=== PATIENT | male | born 1955 | race Caucasian/White ===

== ENCOUNTER 2016-04-19 06:52 | Inpatient (IN) | payer OTHER ==
--- NOTE | 2016-04-18 22:01 | GHP ---
[f rep st] PREOP HISTORY AND PHYSICAL Amended report DATE OF SURGERY: He will have surgery at [facility] on Tuesday April 19, 2016. PROBLEM: Right hip arthritis. HISTORY OF PRESENT ILLNESS: The patient is a 61-year-old man admitted for a right hip Peggy hip resurfacing arthroplasty. He lives in [place]. I did his left BHR in January of 2012. He has had an excellent result. In the last year or so he has had progressive pain in his right hip. He is now having daily pain and night pain. He has trouble putting on his shoes and socks on the right foot. PAST MEDICAL HISTORY: He is treated for hypothyroidism and elevated cholesterol. No history of heart disease, stents, DVT, hepatitis, or sleep apnea. He had a right knee medial compartment Antonino arthroplasty in 2012 with a good result. CURRENT MEDICATIONS: Thyroid replacement 150 mcg per day and Crestor. ALLERGIES: He probably had some type of reaction to oxycodone with his first BHR. He also believes he has a latex allergy. SOCIAL HISTORY: The patient is . He lives in [place]. He does not smoke cigarettes and occasionally drinks alcohol. He works as a assistant real estate manager. FAMILY HISTORY: Negative. PHYSICAL EXAMINATION: GENERAL: He is a healthy, fit appearing man. Height 5 feet 8 inches, weight 180 pounds. BMI 27.4. EYES: Conjunctivae and sclerae are clear. Pupils are round and reactive. MOUTH: Good oral hygiene. No loose teeth. CHEST: Clear. HEART: Regular rhythm. No murmurs. EXTREMITIES : Pertinent findings limited to his right hip. He has full hip extension and 90 degrees of flexion. As he flexes the hip, he develops a 10-degree external rotation contracture and has only about 10 additional degrees of external rotation. Abduction 20-30 degrees. His films show advanced degenerative arthritis of the right hip. He is bone on bone. Peripheral osteophytes are present. His left BHR looks excellent. IMPRESSION ON ADMISSION: 1. Right hip degenerative arthritis. He is prepared for right hip [place] hip resurfacing arthroplasty. 2. Five years status post successful left [place] hip resurfacing. 3. Status post right knee medial compartment Antonino uni arthroplasty. 4. Treatment for hypothyroidism and elevated cholesterol. PLAN: He will undergo a right hip [place] hip resurfacing arthrplasty. The surgery has been described to him including the risks, complications, expectations, and recovery time. I have discussed with him the risks of dislocation, femoral neck fracture, infection, and sciatic nerve injury. We have also discussed the risks of elevated metal ions in the blood and in the soft tissues around the hip joint. He understands that there is a risk of future revision surgery. I have also advised him that with bilateral procedures there can be mild [id number] differences in the recovery and even in the final result. I have also advised him that he is at the upper age limit of suitability for hip resurfacing. He feels like since he has had such a good result on the left side that he wants resurfacing on the right. All his questions have been answered, and he consents to surgery. /[id number]/MODL MTDD
[~2016-04-19 06:52] MED LIST: ACETAMINOPHEN 325 MG TAB ONE; ACETAMINOPHEN 325 MG TAB PO ONE; CEFAZOLIN 2 GM/DEXTR 100 ML IV ONE; CEFAZOLIN 2 GM/DEXTROSE/100 ML BAG IV ONE; DEXAMETHASONE 4 MG/ML VIAL IVP ONE; DEXAMETHASONE 4 MG/ML VIAL ONE; FAMOTIDINE 20 MG TAB ONE; FAMOTIDINE 20 MG TAB PO ONE; HYDROCODONE/APAP 5/325 TAB PO ONE; LIDOCAINE 1% 5 ML SDV ONE; POVIDONE-IODINE 20 ML in SODIUM CL IRRIG SOLUTION 500 ML IRR ONE; ROPI/epiNEPH/KETOROLAC JOINT COCKTAIL IU ONE; TRANEXAMIC ACID 800 MG in NS 100 ML IV ONE
[2016-04-19] MEDS ORDERED: LR 1,000 ML IV ONE (07:16)
[2016-04-19] MEDS ORDERED: LIDOCAINE 1% 5 ML SDV ID PRN (07:16)
[2016-04-19] MEDS ORDERED: SKIN ADHESIVE (DERMABOND) 1 EACH TP ONE (07:46)
[2016-04-19] MEDS ORDERED: ceFAZolin 1 GM/5 ML SYR ONE (07:47)
[2016-04-19] MEDS ORDERED: PROPOFOL/EMULSION 500 MG/50 ML BOTTLE IV ONE (08:04)
[2016-04-19] MEDS ORDERED: MIDAZOLAM 2 MG/2 ML VIAL ONE (08:16)
[2016-04-19] MEDS ORDERED: LIDOCAINE 2% 100 MG/5 ML SYR IVP ONE (08:26)
--- NOTE | 2016-04-19 10:05 | POSTOPPROG ---
Post Op Note Date of Operation: 04/19/16 Surgeon: Davide Schrader Legal Activity Adjudicator: Shira Anesthesiologist: Rob Anesthesia: IV Sedation, Spinal Post-op Diagnosis: R hip arthritis Procedure: R BHR Inf/Abcess present in the surg proc area at time of surgery?: No EBL: 100-500
[2016-04-19] MEDS ORDERED: diphenhydrAMINE 25 MG CAP PO PRN (10:14)
[2016-04-19] MEDS ORDERED: MAGNESIUM HYDROXIDE 30 ML UDCUP PO PRN (10:14)
[2016-04-19] MEDS ORDERED: PROMETHAZINE HCL 25 MG/ML INJ IVP PRN (10:14)
[2016-04-19] MEDS ORDERED: ONDANSETRON DISINTEGRATING 4 MG TAB PO PRN (10:14)
[2016-04-19] MEDS ORDERED: PHARMACY PAIN CONSULT 1 EA MISC PRN (10:14)
[2016-04-19] MEDS ORDERED: POLYETHYLENE GLYCOL 3350 17 GM PKT PO PRN (10:14)
[2016-04-19] MEDS ORDERED: TEMAZEPAM 15 MG CAP PO PRN (10:14)
[2016-04-19] MEDS ORDERED: CYCLOBENZAPRINE 10 MG TAB PO PRN (10:14)
[2016-04-19] MEDS ORDERED: KETOROLAC 30 MG/1 ML SDV IVP PRN (10:14)
[2016-04-19] MEDS ORDERED: traMADol 50 MG TAB PO PRN (10:14)
[2016-04-19] MEDS ORDERED: DIPHENOXYLATE/ATROPINE LOMOTIL 1 TAB PO PRN (10:14)
[2016-04-19] MEDS ORDERED: METOCLOPRAMIDE 10 MG/2 ML VIAL IVP PRN (10:14)
[2016-04-19] MEDS ORDERED: NS 500 ML IV PRN (10:14)
[2016-04-19] MEDS ORDERED: PROMETHAZINE HCL 25 MG SUPPR PR PRN (10:14)
[2016-04-19] MEDS ORDERED: LACTULOSE 20 GM/30 ML UDCUP PO PRN (10:14)
[2016-04-19] MEDS ORDERED: ONDANSETRON 4 MG/2 ML VIAL IVP PRN (10:14)
[2016-04-19] MEDS ORDERED: BISACODYL 10 MG SUPP PR PRN (10:14)
--- NOTE | 2016-04-19 10:53 | GOP ---
[f rep st] OPERATIVE REPORT DATE OF OPERATION: 04/19/2016 SURGEON: Davide Schrader MD ARTIST MODEL: Nils Velarde, STAVE BLOCK ROLLER and Yunier Aguilar, PAC. ANESTHESIA: A combination of Marcaine spinal and IV sedation. ANESTHESIOLOGIST: Suman Lezama MD PREOPERATIVE DIAGNOSIS: Right hip severe degenerative arthritis. POSTOPERATIVE DIAGNOSIS: Right hip severe degenerative arthritis. PROCEDURE PERFORMED: 04/19/2016, a right hip Peggy hip resurfacing arthroplasty. FINDINGS: DESCRIPTION OF PROCEDURE: The patient was given 2 g of IV Ancef preoperatively within 60 minutes of surgery. He also received IV tranexamic acid at a dose of 20 mg/kg. He was placed on the operatin g room table and given spinal anesthesia with Marcaine by Dr. Rivas. He was then placed supine a nd given IV sedation. A [place] catheter was not used. He wore a compressive stocking and SCD on the nonoperative leg. He was rolled to the left lateral decubitus position. An axillary roll was used , and all pressure points were carefully padded. The position was secured with the pegboard table a ttachment. I was careful to lock his pelvis in a vertical position. His perineum was isolated with plastic adhesive drapes. His right hip and right lower extremity were prepped with Betadine soap a nd painted with Betadine solution. He was allergic to ChloraPrep. They were draped free using ster ile sheets, stockinette, and Ioban plastic drape A [facility] time-out was performed to verify the correct patient identity and the co rrect surgical side. The [place] time-out was also performed. I made a 6-7 inch straight oblique posterolateral hip skin incision. Subcutaneous tissues were alphonso ply divided and hemostasis was obtained using electrocautery. The fascia ani was identified and sp lit along the axis of its fibers. I curved posteriorly and proximally and split the fascia of glute us tyrel and bluntly split the muscle fibers in line with their orientation. His sciatic nerve wa s identified and protected throughout the procedure. The [place] self-retaining retractor was inse rted. The external rotators and the posterior hip capsule were divided as separate layers at the ba se of the femoral neck, tagged, and reflected posteriorly. The gluteus tyrel tendon was divided a nd tagged in order to improve exposure and release tension on the sciatic nerve. His hip was disloc ated posteriorly. I used a sizing gauge to check the diameter of the neck and concluded that 50 mm was the proper head size. I performed a circumferential capsulotomy. I was able to retract the fem oral head anteriorly and superiorly and hold it out of place with appropriate retractors. The remna nt of his damaged labrum was completely excised. His acetabulum was reamed sequentially up to 56 mm . I selected the [place] monoblock porous-coated acetabular component with an outside diameter o f 56 mm. This was then firmly impacted and was a very tight fit. I was careful to determine proper inclination and anteversion. I used the transverse acetabular ligament and other acetabular bony l andmarks to help me properly orient the cup. Osteophytes were removed posteriorly and inferiorly wi th a rongeur. I was careful to leave a lip of bone and capsule extending beyond the anterior-inferi or lip of the metal cup. I then returned to preparation of the femoral head. Using appropriate jigs and guides, I inserted a guide pin into the femoral head and neck. I was careful to position it in such a way there would b e no notching of the neck. The large sterile metal goniometer was used to check the neck shaft angl e. I reamed over the guide pin and inserted the reaming guide. I then used the cylindrical reamer down to the head and neck junction. This was followed by the flat reamer and the chamfer reamer. T he head was sized for 50 mm. There was no impingement or damage to the neck. He had moderately lar ge soft anterior neck osteophytes, which I trimmed with a rongeur. He had a 4 mm x 3 mm degenerativ e cyst on the posterior aspect of the prepared head. This was curetted down to healthy bone. It di d not compromise the structural strength of the femoral head. I drilled a small hole in the lesser trochanter and inserted a suction cannula to create negative pressure in the medullary canal. Small holes were drilled on the flattened chamfer surfaces of the prepared head for cement anchors. The head was thoroughly cleaned with the pulsating lavage and carefully dried. I used a CarboJet device to blow dry the cancellous surfaces. A single batch of Simplex cement with tobramycin was mixed. At about 50 seconds, I poured the liquid cement into the head component, inserted it onto the femora l head and impacted it into place. Excess cement was removed before it hardened. The acetabulum wa s irrigated, cleaned and inspected, and the hip was reduced. Stability and range of motion were marisel cked. I placed my finger along the anterior aspect of the acetabular component and flexed the hip t o 110 degrees. There was no anterior impingement. The suction cannula on the lesser trochanter was removed. The wound was thoroughly irrigated with a dilute Betadine solution. 40 mL of the joint a nesthetic cocktail were injected into the capsule, the deep musculature, and the subcutaneous tissue s along the skin edges. His sciatic nerve was reinspected and looked unharmed. The external rotators and the posterior hip capsule were repaired in separate layers with #2 FiberWire sutures through drill holes in the greate r trochanter. This provided a strong posterior capsular and external rotator repair. The gluteus m aximus tendon was repaired with 2 interrupted [id number] #2 FiberWire sutures. The fascia ani was repaired 1st with 2 interrupted [id number] #2 FiberWire sutures, followed by a running #2 barbed Ethicon Stratafix PDO suture. The subcutaneous tissues were closed with a running 0 barbed E thicon Stratafix Monoderm suture. The skin was closed with a running 3-0 barbed Ethicon Stratafix M onoderm subcuticular suture. The skin edges were reapproximated and sealed with Dermabond glue. Th e wound was covered with a strip of Telfa, and everything was held in place with a piece of clear pl astic Tegaderm. The estimated blood loss was about 400 mL. I used a [employer] [place] hip resurfacing system. The acetabular component was 56 mm in diameter and press-fit. The femoral head was 50 mm and cemented. The patient was awakened from ane sthesia and rolled to the supine position on his [facility]. A long-leg compressive stocking a nd SCD were applied to the operative leg. He wore a stocking and SCD on the opposite leg during the procedure. An abduction pillow was placed between his knees. He was taken to PACU in satisfactory condition. There were no recognized intraoperative complications. The sponge and needle counts were correct on 2 occasions. Nils Velarde and Enoch Aguilar acted as surgical assistants. Their assistance was a juan m costa. /[id number]/MODL
[2016-04-19] MEDS: HYDROCODONE/APAP 5/325 TAB PO PRN ×2 (11:57→18:58)
[2016-04-19] MEDS: ACETAMINOPHEN 325 MG TAB PO SCH ×2 (12:29→17:54)
[2016-04-19] MEDS: TRANEXAMIC ACID 650 MG TAB PO SCH ×3 (12:54→21:37)
[2016-04-19] MEDS ORDERED: ceFAZolin 2 GM/DEXTROSE 100 ML IV SCH (14:00)
[2016-04-19] MEDS: LR 1,000 ML IV SCH (14:47)
[2016-04-19] MEDS: ceFAZolin 2 GM in D5W 100 ML IV SCH ×2 (15:01→21:38)
[2016-04-19] MEDS ORDERED: ROSUVASTATIN CALCIUM 20 MG TAB PO SCH (18:00)
[2016-04-19] MEDS: SENNOSIDES/DOCUSATE SODIUM TAB PO SCH (21:37)
[2016-04-19] MEDS: ASPIRIN 325 MG TAB PO SCH (21:37)
[2016-04-19] MEDS: FAMOTIDINE 20 MG TAB PO SCH (21:38)
[2016-04-20] MEDS: ACETAMINOPHEN 325 MG TAB PO SCH ×2 (00:11→05:46)
[2016-04-20] MEDS: HYDROCODONE/APAP 5/325 TAB PO PRN ×3 (00:41→12:01)
[2016-04-20 04:14] VITALS: TEMP 97.8; O2SAT 93
[2016-04-20 05:16] LABS: HEMATOCRIT 34.2 % (40.0-51.0)
[2016-04-20] MEDS: LR 1,000 ML IV SCH (05:35)
[2016-04-20] MEDS ORDERED: LEVOTHYROXINE 150 MCG TAB PO SCH (06:00)
[2016-04-20 06:47] VITALS: BP 113/80
[2016-04-20] MEDS: ASPIRIN 325 MG TAB PO SCH (07:32)
[2016-04-20] MEDS: SENNOSIDES/DOCUSATE SODIUM TAB PO SCH (07:32)
[2016-04-20] MEDS: TRANEXAMIC ACID 650 MG TAB PO SCH (07:33)
[2016-04-20] MEDS: FAMOTIDINE 20 MG TAB PO SCH (07:33)
[2016-04-20 07:43] VITALS: PULSE 60; RESP 16
[2016-04-20] MEDS ORDERED: PANTOPRAZOLE SODIUM 40 MG TAB PO SCH (09:00)
[2016-04-20] MEDS ORDERED: NON-FORMULARY NEW DRUG (Omeprazole [Prilosec 20 Mg] 20 MG) PO SCH (09:00)
[2016-04-20] MEDS ORDERED: FERROUS SULFATE 140 MG TAB.ER PO SCH (09:00)
[2016-04-20] MEDS ORDERED: NAPHAZOLINE HCL EACHEYE SCH (09:00)
--- NOTE | 2016-04-20 11:29 | SOAPPROG ---
SOAP Progress Note Assessment/Plan: Assessment: Awake and alert. Afebrile. Mild pain. Dsg is dry. Up and walking. H/H is good. Films look good. Plan:DC today. 04/20/16 11:28 Objective: Vital Signs Temp Pulse Resp BP Pulse Ox 36.6 C 60 16 113/80 93 04/20/16 04:00 04/20/16 07:42 04/20/16 07:42 04/20/16 06:47 04/20/16 07:42 Laboratory Results 04/20/16 04:30 04/19/16 04/20/16 04/21/16 05:59 05:59 05:59 Intake Total 3455 150 Output Total 1450 400 Balance 2004 ICD10 Worksheet Patient Problems: Problems Problem Status Onset Osteoarthritis of right hip Acute Primary osteoarthritis of one knee Acute
--- NOTE | 2016-04-20 11:55 | GDS ---
ADMISSION DIAGNOSIS: Right hip severe degenerative arthritis. DISCHARGE DIAGNOSIS: Right hip severe degenerative arthritis. OPERATION PERFORMED: April 19, 2016, right hip [place] hip resurfacing arthroplasty. POSTOPERATIVE COMPLICATIONS: None. CONDITION ON DISCHARGE: Improved. DESCRIPTION OF HOSPITAL COURSE: The patient was admitted to the hospital ON the morning of surgery. His admission CBC was normal. The same day under combination of Marcaine, spinal and IV sedation, he underwent a right hip Peggy hip resurfacing arthroplasty. Postoperatively he was treated w ith multimodal DVT prophylaxis including aspirin. On the 1st postoperative day, his hemoglobin and hematocrit were 12.0 and 34.2. He did not require any transfused blood. He was seen by Physical Th tobin and made excellent progress with ambulation and stairs. By the time of discharge, he was afeb rile, his wound was dry, and he was independent walking. DISPOSITION: Patient discharged to his home in [place]. He may progress to full weightbea ring on the right as tolerated. Use of pillow in bed at night for 3 weeks. He will go to [facility]. ANTONY stockings for 1 week. Continue aspirin 325 mg for 21 days. He has prescri ptions for [place] and tramadol for pain control. If there are any problems, he is to call me at the office. I will see him back in the office on May 12, 2016. Copy requested to: Dr. Kvng Ortiz [facility] /[id number]/MODL
== END 2016-04-20 12:16 | disposition home or self-care (01) | DRG 470 ==
LOC: F3N 06:52
PROVIDERS: ADMIT Orthopaedic Surgery; ATTEND Orthopaedic Surgery
PROC: 0SU90BZ Supplement Right Hip Joint with Resurfacing Device, Open Approach (ICD-10-PCS; principal; 2016-04-19 08:15)
DX: M16.11 Unilateral primary osteoarthritis, right hip (principal); Z96.642 Presence of left artificial hip joint; Z96.651 Presence of right artificial knee joint; E03.9 Hypothyroidism, unspecified; E78.00 Pure hypercholesterolemia, unspecified
CPT/HCPCS: 97110-GP; 97116-GP; 97161-GP; 97530-GP; C1713; C1769; J0171; J0690; J1100; J1885; J2001; J2250; J2704; J2795